=== PATIENT | male | born 1975 | race Caucasian/White ===

== ENCOUNTER 2018-12-22 06:26 | Emergency (ER) | payer SELFPAY ==
[~2018-12-22] VITALS: Ht 182.9 cm; Wt 86.2 kg
--- NOTE | 2018-12-22 06:40 | NUR ---
PT BIBSELF C/O AUDITORY AND VISUAL HALLUCINATIONS. 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 PT APPEARS VERY PARANOID, EASILY DISTRACTED. PT AAOX4. RESPIRATIONS EVEN AND UNLABORED. AMBULATORY WITH STEADY GAIT. SKIN INTACT. WILL CONTINUE TO MONITOR
--- NOTE | 2018-12-22 06:40 | NUR ---
PT UNABLE TO PROVIDE URINE SAMPLE AT THIS TIME
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
[2018-12-22] MEDS ORDERED: OLANZAPINE 5 MG TABLET PO ONE (07:00)
[2018-12-22] MEDS ORDERED: LORAZEPAM 1 MG TABLET PO ONE (07:00)
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
[2018-12-22] MEDS ORDERED: LORAZEPAM 1 MG TABLET ONE ×2 (07:09→07:11)
[2018-12-22] MEDS ORDERED: OLANZAPINE 5 MG TABLET ONE (07:09)
[2018-12-22 07:11] LABS: BASOPHILS % (AUTO) 0.5 % (0.0-2.0); HEMATOCRIT 47 % (39-51); LYMPHOCYTES # (AUTO) 0.8 /CMM (0.8-4.8); LYMPHOCYTES % (AUTO) 10.3 % (20.0-44.0); MEAN CORPUSCULAR HGB CONC 34 g/dl (31.0-36.0); MEAN CORPUSCULAR VOLUME 94 fL (80-96); MONOCYTES # (AUTO) 0.6 /CMM (0.1-1.30); MONOCYTES % (AUTO) 7.3 % (2.0-12.0); NEUTROPHILS # (AUTO) 6.7 /CMM (1.8-8.9); NEUTROPHILS % (AUTO) 81.9 % (43.0-81.0); PLATELET COUNT (AUTO) 352 /CMM (150-450); RED BLOOD CELL COUNT(AUTO) 5.03 MIL/uL (4.5-6.0); WHITE BLOOD COUNT (AUTO) 8.2 K/uL (4.3-11.0)
[2018-12-22 07:26] LABS: CALCIUM, SERUM 8.8 mg/dL (8.5-10.1); CARBON DIOXIDE 26 mmol/L (21-32); CHLORIDE 103 mmol/L (98-107); CREATININE 1.2 mg/dL (0.6-1.3); GLUCOSE 147 mg/dL (74-106); POTASSIUM 3.1 mmol/L (3.5-5.1); SODIUM SERUM 139 mmol/L (136-145); UREA NITROGEN, BLOOD 12 mg/dL (7-18)
--- NOTE | 2018-12-22 07:27 | NUR ---
PT REFUSING MEDICATIONS. PT STATES "I DO NOT FEEL SAFE HERE. I WANT TO LEAVE" ER MD AWARE
[2018-12-22 07:28] VITALS: BP 157/84
--- NOTE | 2018-12-22 07:28 | NUR ---
Patient discharged to home in stable condition. Written and verbal after care instructions given. Patient verbalizes understanding of instruction.Pt ambulatory with a steady gait
[2018-12-22 07:30] LABS: ACETAMINOPHEN 0 ug/ml (10-30); ALANINE AMINOTRANSFERASE 41 U/L (12-78); ALBUMIN 4.3 g/dL (3.4-5.0); ALCOHOL, BLOOD < 3 mg/dL (0-0); ALKALINE PHOSPHATASE 112 U/L (46-116); ASPARTATE AMINOTRANSFERASE 31 U/L (15-37); BILIRUBIN,DIRECT 0.2 mg/dL (0.0-0.2); BILIRUBIN,TOTAL 0.7 mg/dL (0.2-1.0); SALICYLATE 0.7 mg/dL (2.8-20.0); TOTAL PROTEIN, SERUM 8.3 g/dL (6.4-8.2)
== END 2018-12-22 07:28 | disposition home or self-care (01) ==
LOC: ER 06:28
DX: F15.10 Other stimulant abuse, uncomplicated (principal); F17.200 Nicotine dependence, unspecified, uncomplicated
CPT/HCPCS: 36415; 80048; 80076; 80307; 80329; 85025; 99283; G0480